=== PATIENT | female | born 1970 | race African-American/Black ===

== ENCOUNTER 2017-08-01 14:11 | Emergency (ER) | payer SELFPAY ==
[~2017-08-01] VITALS: Ht 162.6 cm; Wt 61.0 kg
[2017-08-01 14:14] VITALS: Ht 162.6 cm; Wt 61.0 kg
--- NOTE | 2017-08-01 16:16 | ERD ---
ER Documentation Chief Complaint Chief Complaint cough x 2 days HPI 47-year-old female, previously healthy, presents to the emergency department complaining of worsening of cough for 2 months. The cough is productive of white sputum, constant but worse at night associated with mild retrosternal, burning pain when coughing. Denies fevers, chills, no shortness of breath. No treatment attempted at this time. No flu vaccine. The patient is requesting chest x-rays and a prescription for antibiotics ROS A 12-point review of systems was performed and negative other than presented in the history of present illness. SYSTEMIC symptoms: no fever, chills, no night sweats, no weight loss EYE symptoms: No blurred vision, no eye discharge OTOLARYNGEAL symptoms: No hearing loss. No ear pain, no sore throat CARDIOVASCULAR symptoms: No chest pain or discomfort, no palpitations. PULMONARY symptoms: Per HPI. GASTROINTESTINAL symptoms: No abdominal pain, no nausea, no vomiting, no diarrhea MUSCULOSKELETAL symptoms: No arthralgias, no muscle aches. NEUROLOGY symptoms: No confusion, no syncope, no numbness or tingling. SKIN: No rashes Medications Home Meds Active Scripts Ranitidine Hcl* (Zantac*) 150 Mg Tablet, 150 MG PO BID Y for EPIGASTRIC PAIN, # 10 TAB Prov:UVALDO CARRILLO MD 08/01/17 Promethazine HCl/Codeine (Prometh-Codein 6.25-10 mg/5 ml) 5 Ml Syrup, 5 ML PO QHS for COUGH for 5 Days, #120 ML Prov:UVALDO CARRILLO MD 08/01/17 Azithromycin* (Zithromax*) 250 Mg Tablet, 250 MG PO .ZPACK DIRECTED, #6 TAB TAKE 500 MG (2 TABS) THE FIRST DAY THEN 250 MG (1 TAB) DAYS 2-5 Prov:UVALDO CARRILLO MD 08/01/17 PMhx/Soc Hx Respiratory Disorders: Yes (bronchitis) Hx Alcohol Use: No Hx Substance Use: No Hx Tobacco Use: No Physical Exam Vitals Vital Signs Date Time Temp Pulse Resp B/P Pulse Ox O2 Delivery O2 Flow Rate FiO2 08/01/17 14:14 99.0 85 18 133/58 98 Physical Exam Patient is in no acute distress, vital signs stable. Alert and fully oriented. EYES: PERRLA, EOMI, Sclera and conjunctiva appear normal. EARS: Canals clear, tympanic membranes WNL THROAT: Erythematous oropharynx. NECK: Supple, No lymphadenopathy. Full ROM without pain or tenderness. HEART: RRR, no rubs, murmurs, clicks or gallops. LUNGS: Clear to auscultation. ABDOMEN: Soft, non-tender without masses or hepatosplenomegaly. EXTREMITIES: No edema bilaterally. BACK: Full ROM, no deformity, normal back exam NEURO: Cranial nerves grossly intact, no motor or sensory deficit Results 24 hrs [place] [id number] Radiology Main Line: [phone] DIAGNOSTIC IMAGING REPORT Patient: TESSY MORA : 1970 Age: 47 Sex: F MR #: [id number] DOS: 08/01/17 1602 Ordering MD: UVALDO CARRLILO MD Location: [facility] Room/Bed: PROCEDURE: Two-view XR Chest. CLINICAL INDICATION: cough for 2 months TECHNIQUE: Frontal and lateral chest x-ray was obtained. COMPARISON: None. FINDINGS: Heart is not enlarged. Mediastinum is not widened. No hilar mass is present. Lungs are clear of any infiltrate or mass. There is no effusion or pneumothorax. IMPRESSION: No evidence for active cardiopulmonary disease. .Paulo Coleman MD, MD Date Time Electronically viewed and signed by .Paulo Coleman MD, MD on 08/01/2017 16: 50 .A/ CC: UVALDO CARRILLO MD Procedures/MDM 47-year-old female, previously healthy, presents to the emergency department for persistent cough for 2 months. Vital signs stable, Physical exam unremarkable. Differential diagnosis include but not limited to: Respiratory infection bacterial/viral/fungal. Asthma/COPD, pneumonitis, allergies, GERD. Less likely pulmonary embolism, foreign body aspiration, cardiac related, aspiration pneumonia, malignancy. Pertinent Data: Radiology: Chest x-rays: No acute cardiopulmonary disease. Physical examination and clinical presentation consistent most likely with allergic cough/GERD. Antibiotics not indicated at this time, however, the patient insisted in a prescription for antibiotics. During the ED course the patient remained stable, no new complaints. Results and clinical impression discussed with patient who agrees with management. The patient is stable to be treated outpatient and will be discharged home with a Rx for azithromycin, ranitidine and cough medication, some side effects of prescribed medications (headache, rash, nausea, vomiting, diarrhea, drowsiness, habituation, bleeding, hypertension, interactions with other medications) were reviewed. The patient was instructed to follow up with the primary care provider in the next 48h. If symptoms persist, worsen or new symptoms develop, then patient should return to the ED immediately. Instructions explained and given directly by me to the patient in Tongan with acknowledgment and demonstrated understanding. Disclaimer: Inadvertent spelling and grammatical errors are likely due to EHR/ dictation software use and do not reflect on the overall quality of patient care. Also, please note that the electronic time recorded on this note does not necessarily reflect the actual time of the patient encounter. Departure Diagnosis: Primary Impression: Cough Condition: Stable Additional Instructions: Call your primary care doctor TOMORROW for an appointment during the next 1-2 days. See the doctor sooner or return here if your condition worsens before your appointment time. Thank you very much for allowing us to participate in your care. Your health and safety is our top priority at [facility]. Have prescriptions filled and follow precisely the directions on the label. Follow-up with primary care provider during the next 4 days and bring all the information and medications prescribed. If illness has not improved in 2 days, then make an appointment with primary care provider. If the provider is unavailable, return to the Emergency Department immediately. UVALDO CARRILLO MD Aug 01, 2017 16:16
--- NOTE | 2017-08-01 16:51 | RADRPT ---
PROCEDURE: Two-view XR Chest. CLINICAL INDICATION: cough for 2 months TECHNIQUE: Frontal and lateral chest x-ray was obtained. COMPARISON: None. FINDINGS: Heart is not enlarged. Mediastinum is not widened. No hilar mass is present. Lungs are clear of any infiltrate or mass. There is no effusion or pneumothorax. IMPRESSION: No evidence for active cardiopulmonary disease. .Paulo Coleman MD, MD Date Time Electronically viewed and signed by .Paulo Coleman MD, on 08/01/2017 16:50 .A/
[2017-08-01] MEDS ORDERED: AZIT250T94 PO (17:04)
[2017-08-01] MEDS ORDERED: PROM5SYR2 PO (17:04)
[2017-08-01] MEDS ORDERED: RANI150T9 PO (17:04)
== END 2017-08-01 18:25 | disposition left against medical advice (07) ==
LOC: FTE 14:11
DX: R05 Cough (principal)
CPT/HCPCS: 71020